=== PATIENT | female | born 1955 | race Caucasian/White ===

== ENCOUNTER 2020-06-07 15:33 | Outpatient (REF) | payer OTHER, SELFPAY ==
[2020-06-09 07:59] LABS: SARS COV2 IgG Negative (Negative)
== END 2020-06-07 15:34 | disposition home or self-care (01) ==
LOC: HO.LAB 15:33
PROVIDERS: PCP Internal Medicine; Visit Provider Internal Medicine
DX: Z01.84 Encounter for antibody response examination (principal); J44.9 Chronic obstructive pulmonary disease, unspecified
CPT/HCPCS: 36415; 86769

== ENCOUNTER 2020-09-25 06:39 | Outpatient (REF) | payer OTHER, SELFPAY ==
[2020-09-25 07:11] LABS: Hematocrit 34.5 % (37-47); Hemoglobin 11.3 g/dl (12.0-16.0); Mean Corpuscular HGB Conc 32.8 g/dl (31.0-35.0); Mean Corpuscular Hemoglobin 30.8 pg (27.0-33.0); Mean Platelet Volume 9.7 fL (9.4-12.3); Platelet Count 306 X10*3/uL (160-400); Red Blood Count 3.67 X10*6/uL (4.20-5.50); Red Cell Distribution Width 12.5 % (11.0-16.0); White Blood Count 5.5 X10*3/uL (4.8-10.8)
[2020-09-25 07:27] LABS: Alanine Aminotransferase 10 U/L (0-31); Albumin Level 4.1 g/dL (3.5-5.0); Alkaline Phosphatase 80 U/L (39-117); Anion Gap 10 (12-20); Aspartate Amino Transferase 17 U/L (5-31); Bilirubin Total 0.8 mg/dL (0.0-1.0); Blood Urea Nitrogen 12 mg/dL (9-16); Calcium 9.4 mg/dL (8.4-10.2); Carbon Dioxide 28 mmol/L (22-29); Chloride 105 mmol/L (96-108); Cholesterol 199 mg/dL; Estimated Glomerular Filt Rate > 60; Glucose Fasting 86 mg/dL (60-99); HDL Cholesterol 52 mg/dL; LDL Cholesterol Calculated 126 mg/dl; Potassium 4.1 mmol/L (3.3-5.1); Sodium 139 mmol/L (135-145); Triglycerides 109 mg/dL
[2020-09-25 07:48] LABS: TSH reflex Free T4 1.83 uIU/mL (0.32-4.0)
[2020-09-26 11:55] LABS: Lyme Abs Screen <0.90 index
== END 2020-09-25 06:40 | disposition home or self-care (01) ==
LOC: HO.LAB 06:39
PROVIDERS: PCP Internal Medicine; Visit Provider Physician Assistant
DX: Z13.29 Encounter for screening for other suspected endocrine disorder (principal); Z13.220 Encounter for screening for lipoid disorders; T14.8XXA Other injury of unspecified body region, initial encounter; W57.XXXA Bitten or stung by nonvenomous insect and other nonvenomous arthropods, initial encounter; I10 Essential (primary) hypertension
CPT/HCPCS: 36415; 80053; 80061; 84443; 85027; 86617; 86618

== ENCOUNTER 2020-10-18 08:33 | Outpatient (REF) | payer OTHER, SELFPAY ==
--- NOTE | ~2020-10-18 | MM_ITS ---
EXAMINATION: MM SCREENING DIGITAL BREAST TOMOSYNTHESIS, BILATERAL CLINICAL INFORMATION: Screening. Asymptomatic. The lifetime risk of breast cancer based on the Tyrer-Cuzick Model is 8%. COMPARISON: Mammography: October 13, 2019 and studies dating back to August 31, 2010 TECHNIQUE: Digital breast tomosynthesis is performed in both the craniocaudal and mediolateral oblique views along with computer-aided detection (CAD). Synthesized 2D images are generated from the tomosynthesis. FINDINGS: The breasts are heterogeneously dense, which may obscure small masses (ACR BI-RADS breast composition Category c). There are no significant masses, abnormal calcifications, or other abnormalities. MM/MM tomosynthesis screening BI IMPRESSION: There are no significant changes from prior study. ASSESSMENT: BI-RADS 1: Negative RECOMMENDATION: Routine annual mammography screening. This patient's information was entered into a reminder system with a target due date for their next mammogram.
== END 2020-10-18 08:34 | disposition home or self-care (01) ==
LOC: HO.MAMMO 08:33
PROVIDERS: PCP Internal Medicine; Visit Provider Internal Medicine
DX: Z12.31 Encounter for screening mammogram for malignant neoplasm of breast (principal)
CPT/HCPCS: 77063; 77067

== ENCOUNTER 2020-11-28 10:14 | Outpatient (REF) | payer OTHER, SELFPAY ==
--- NOTE | ~2020-11-28 | XR_ITS ---
EXAMINATION: XR HAND, LEFT CLINICAL INFORMATION: Contusion of hand. COMPARISON: None TECHNIQUE: PA, lateral, and oblique views of the left hand. FINDINGS: There is a small undisplaced fracture suspected along the proximal phalanx fourth digit with mild soft tissue swelling distally. The MCP, DIP and intercarpal joint space is maintained normal. There is mild dorsal soft tissue swelling adjacent to the MCP joints. There is mild osteopenia. XR/XR hand LT min 3V IMPRESSION: Mild osteopenia. Nondisplaced fracture suspected in proximal phalanx fourth digit with mild distal soft tissue swelling Visualized soft tissue swelling dorsal to the metacarpal joints on lateral view.
== END 2020-11-28 10:15 | disposition home or self-care (01) ==
LOC: HO.HMGCX 10:14
PROVIDERS: PCP Internal Medicine; Visit Provider Internal Medicine
DX: Z13.89 Encounter for screening for other disorder (principal)
CPT/HCPCS: 73130

== ENCOUNTER 2021-09-24 14:38 | Outpatient (REF) | payer MEDICARE, OTHER, SELFPAY ==
[2021-09-24 15:23] LABS: Appearance Urine CLEAR; Color Urine STRAW; Glucose Urine UA NEG (NEG); Leukocyte Esterase Urine 3+ (NEG); Nitrite Urine NEG (NEG); Specific Gravity - Urine <= 1.005 (1.005-1.025); UACC Culture Trigger YES; Urine Blood TRACE (NEG); Urine Ketones 5 MG/DL (NEG); Urine Protein NEG (NEG-TRACE)
[2021-09-24 15:40] LABS: Bacteria Urine 2+ /LPF; RBC Urine 0-2 /HPF (0); Squamous Epithelial Cell Urine TRACE /LPF; WBC Clumps Urine NOTED
== END 2021-09-24 14:39 | disposition home or self-care (01) ==
LOC: HO.LAB 14:38
PROVIDERS: PCP Internal Medicine; Visit Provider Internal Medicine
DX: R30.0 Dysuria (principal)
CPT/HCPCS: 81001; 87086; 87088; 87186

== ENCOUNTER 2021-10-17 07:09 | Outpatient (REF) | payer MEDICARE, OTHER, SELFPAY ==
[2021-10-17 07:53] LABS: Alanine Aminotransferase 11 U/L (0-31); Albumin Level 3.9 g/dL (3.5-5.0); Alkaline Phosphatase 73 U/L (39-117); Anion Gap 12 (12-20); Aspartate Amino Transferase 16 U/L (5-31); Bilirubin Total 0.6 mg/dL (0.0-1.0); Blood Urea Nitrogen 10 mg/dL (9-16); Calcium 8.9 mg/dL (8.4-10.2); Carbon Dioxide 26 mmol/L (22-29); Chloride 107 mmol/L (96-108); Cholesterol 232 mg/dL; Estimated Glomerular Filt Rate > 60; Glucose Fasting 86 mg/dL (60-99); HDL Cholesterol 61 mg/dL; LDL Cholesterol Calculated 159 mg/dl; Potassium 3.9 mmol/L (3.3-5.1); Sodium 141 mmol/L (135-145); Total Protein 6.9 g/dL (6.5-8.0); Triglycerides 60 mg/dL
[2021-10-18 13:26] LABS: Lyme Abs Screen <0.90 index
== END 2021-10-17 07:10 | disposition home or self-care (01) ==
LOC: HO.LAB 07:09
PROVIDERS: PCP Internal Medicine; Visit Provider Internal Medicine
DX: Z00.00 Encounter for general adult medical examination without abnormal findings (principal); T14.8XXA Other injury of unspecified body region, initial encounter; W57.XXXA Bitten or stung by nonvenomous insect and other nonvenomous arthropods, initial encounter
CPT/HCPCS: 36415; 80053; 80061; 86617; 86618

== ENCOUNTER 2021-10-23 07:44 | Outpatient (REF) | payer OTHER, MEDICARE, SELFPAY ==
--- NOTE | ~2021-10-23 | MM_ITS ---
EXAMINATION: MM SCREENING DIGITAL BREAST TOMOSYNTHESIS, BILATERAL CLINICAL INFORMATION: Screening. Asymptomatic. The lifetime risk of breast cancer based on the Tyrer-Cuzick Model is 7.0%. COMPARISON: Mammography: October 18, 2020 and studies dating back to June 20, 2014 TECHNIQUE: Digital breast tomosynthesis is performed in both the craniocaudal and mediolateral oblique views along with computer-aided detection (CAD). Synthesized 2D images are generated from the tomosynthesis. FINDINGS: The breasts are heterogeneously dense, which may obscure small masses (ACR BI-RADS breast composition Category c). There are no significant masses, abnormal calcifications, or other abnormalities. MM/MM tomosynthesis screening BI IMPRESSION: No mammographic evidence of malignancy. ASSESSMENT: BI-RADS 1: Negative RECOMMENDATION: Routine annual mammography screening. This patient's information was entered into a reminder system with a target due date for their next mammogram.
== END 2021-10-23 07:45 | disposition home or self-care (01) ==
LOC: HO.MAMMO 07:44
PROVIDERS: PCP Internal Medicine; Visit Provider Internal Medicine
DX: Z12.31 Encounter for screening mammogram for malignant neoplasm of breast (principal)
CPT/HCPCS: 77063; 77067

== ENCOUNTER → 2023-01-02 07:45 | Outpatient (BNV) | payer MEDICARE, OTHER, SELFPAY | PROVIDERS: PCP Internal Medicine; Visit Provider Radiology Diagnostic Radiology | DX: Z12.31 Encounter for screening mammogram for malignant neoplasm of breast (principal) | CPT/HCPCS: 77063; 77067 ==

== ENCOUNTER 2023-01-02 07:49 | Outpatient (REF) | payer MEDICARE, OTHER, SELFPAY | END 2023-01-02 07:50 | disposition home or self-care (01) | LOC: HO.MAMMO 07:49 | PROVIDERS: PCP Internal Medicine; Visit Provider Internal Medicine | DX: Z12.31 Encounter for screening mammogram for malignant neoplasm of breast (principal) | CPT/HCPCS: 77063; 77067 ==

== ENCOUNTER 2023-01-02 09:22 | Outpatient (AMB) | payer MEDICARE, OTHER, SELFPAY ==
[2023-01-02 09:23] VITALS: BP 114/70; PULSE 81; TEMP 36.4; O2SAT 98; BMI 21.6
--- NOTE | 2023-01-02 09:23 | A.OFFVIS_ITS ---
Intake Vital Signs 01/02/23 09:23 Height 5 ft 3 in Weight 122 lb BMI 21.6 BP 114/70 Blood Pressure Location Lt brachial Position Sitting Pulse 81 Pulse Source Pulse Oximeter Temp 97.5 F Temp Source Temporal Artery Scan Pulse Oximetry (%) 98 Oxygen Delivery Method Room Air Intake Visit Reasons: EST/ Left sided cheek swelling Intake Note: Pt presents to the office today for c/o left sided cheek swelling. Pt states she was working in the [employer] on friday and she walked into a branch and pt states she did pull out some wood from her cheek but it still has swelling and a lump. 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 Family History Mother Substance abuse Rheumatoid arthritis Essential hypertension Diabetes mellitus Father Mental problem Alzheimers disease Bladder cancer Social History Housing: House Alcohol intake: current Alcohol intake frequency: a few times a week Alcohol type: wine Patient Tobacco Use Status: Never used Tobacco e-Cigarette/Vaping Use: Never Used Second Hand Smoke Exposure: Yes service: No Current occupational status: employed and retired 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
== END 2023-01-02 10:07 | disposition home or self-care (01) ==
PROVIDERS: PCP Internal Medicine; Visit Provider Emergency Medicine
DX: L98.9 Disorder of the skin and subcutaneous tissue, unspecified (principal)
CPT/HCPCS: 99213

== ENCOUNTER 2023-02-11 09:48 | Outpatient (AMB) | payer MEDICARE, OTHER, SELFPAY ==
--- NOTE | 2023-02-11 09:49 | MHC.PC.OV ---
Vital Signs 02/11/23 09:50 Height 5 ft 3 in Weight 119 lb 0.8 oz BMI 21.1 BP 120/74 Blood Pressure Location Lt brachial Position Sitting Pulse 74 Pulse Source Pulse Oximeter Pulse Oximetry (%) 99 Oxygen Delivery Method Room Air Intake Visit Reasons: follow Up Urgent Care/ Face Injury From Branch Intake Note: pt was seen at urgent care for face injury due to a branch. pt states no relief with antibiotics Allergies merbromin [From MERCUROCHROME] Allergy (Intermediate, Verified 02/11/23 09:56) RASH/INFLAMMATION Mercurochrome Allergy (Unknown, Uncoded 02/11/23 09:56) swelling Medication List - Last Reconciled 02/11/23 by BG Velasco No Known Home Meds Tobacco use date assessed: 02/11/23 HPI follow Up Urgent Care/ Face Injury From Branch HPI Details Patient is a 67-year-old female who presents today for the same day visit to follow-up after urgent care visit 12/2022 due to left cheek injury from a branch. Patient of Dr. Carlos. Patient reports the 6 week ago she was working and ran face into branch, and then she removed small wood piece from her left cheek area, she did go to urgent care, patient reports that she applied Betadine to the area after this incident. Today, patient reports that she still can feel small lump on her left cheek, there are no signs of infection. Denies fever. 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 mandaen region Family History Mother Substance abuse Rheumatoid arthritis Essential hypertension Diabetes mellitus Father Mental problem Alzheimers disease Bladder cancer Social History Housing: House Alcohol intake: current Alcohol intake frequency: a few times a week Alcohol type: wine Patient Tobacco Use Status: Never used Tobacco e-Cigarette/Vaping Use: Never Used Second Hand Smoke Exposure: Yes service: No Current occupational status: employed and retired 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 How often do you have a drink containing alcohol?: 2-3 times a week 2. How many drinks containing alcohol do you have on a typical day when you are drinking?: 1 or 2 3. How often do you have six or more drinks on one occasion?: Never Total Score: 3 Score Reviewed/Action Taken: Yes DUNIA-7 AMB Questionnaire DUNIA-7 Date DUNIA - 7 assessed: 09/17/21 Source: Developed by Drs. Melvin Bose, Rain Johansen, Usama Maher and colleagues, with an educational chava from [employer]. Review of Systems Const Denies body aches, Denies chills, Denies fever(s) and Denies headache(s) ENT Denies dizziness, Denies otalgia, Denies headache(s), Denies nasal discharge, Denies sinus pain and Denies sore throat Card Denies chest pain, Denies edema, Denies lightheadedness and Denies dyspnea Resp Denies cough, Denies dyspnea and Denies wheezing GI Denies abdominal pain Musc Denies myalgias Skin/Breast Reports as per HPI Neuro Denies dizziness and Denies headache(s) Aller/Immun Denies wheezing Physical exam (Primary Care) Vital Signs: Last Vital Signs Pulse 74 02/11/23 09:50 BP 120/74 02/11/23 09:50 Pulse Ox 99 02/11/23 09:50 Oxygen Delivery Method Room Air 02/11/23 09:50 BMI result Body Mass Index 21.1 Tobacco/Smoking Status: Tobacco use Status Tobacco use date assessed 02/11/23 02/11/23 09:54 Patient Tobacco Use Status Never used Tobacco 02/11/23 09:54 e-Cigarette/Vaping Use Never Used 02/11/23 09:54 Thrive Assessment: Date of Thrive Assessment Date Thrive assessed 09/17/21 02/11/23 09:54 Const General: cooperative and no acute distress Orientation/consciousness: patient oriented x3 HENMT Head: Yes normocephalic and Yes atraumatic Face and sinus: Yes sinuses nontender Mouth: oropharynx normal and moist mucous membranes Throat: Yes posterior oropharynx normal Eyes General: appearance normal, both eyes and all related structures Neck Neck: Yes normal visual inspection, Yes full ROM and Yes no lymphadenopathy Resp Effort & Inspection: normal respiratory effort and able to speak in complete sentences Auscultation: clear to auscultation bilaterally, no crackles, no rales, no rhonchi and no wheezes Cardio Rate: regular rate Rhythm: regular rhythm Heart sounds: S1 normal heart sound present and S2 normal heart sound present GI Auscultation: normal bowel sounds Skin Full body images: 1. Left cheek about 5 mm hard area to touch, pt reports mild tenderness, skin with small scar tissue, no signs of infection noted, no discharge, no warmth, no erythema Neuro General: patient oriented x3 Gait exam (Neuro): Normal gait present Extrem General: Yes full ROM Assessment and Plan Assessment & Plan (1) Lump of skin: Code(s): R22.9 - Localized swelling, mass and lump, unspecified Plan: Left cheek about 5 mm hard area to touch, pt reports mild tenderness, skin with small scar tissue, no signs of infection noted, no discharge, no warmth, no erythema ? Scar tissue Encouraged patient to perform warm compresses t.i.d. for 1 week notify office if no improvement in 1 week, will consider referral to Dermatology for an evaluation. Patient agreed with the plan Coding Level of Care Code Est Pt Level 3 (45289) Diagnoses Lump of skin R22.9
[2023-02-11 09:50] VITALS: BP 120/74; PULSE 74; O2SAT 99; BMI 21.1
== END 2023-02-11 10:05 | disposition home or self-care (01) ==
PROVIDERS: PCP Internal Medicine; Visit Provider Nurse Practitioner Family
DX: R22.9 Localized swelling, mass and lump, unspecified (principal)
CPT/HCPCS: 99213

== ENCOUNTER 2024-01-08 08:00 | Outpatient (REF) | payer MEDICARE, OTHER, SELFPAY ==
--- NOTE | ~2024-01-08 | MM_ITS ---
EXAMINATION: MM SCREENING DIGITAL BREAST TOMOSYNTHESIS, BILATERAL CLINICAL INFORMATION: Screening. Asymptomatic. COMPARISON: Mammography: Comparison is made with available priors TECHNIQUE: Digital breast mammography with tomosynthesis is performed in both the craniocaudal and mediolateral oblique views along with computer-aided detection (CAD). FINDINGS: The breasts are heterogeneously dense, which may obscure small masses (ACR BI-RADS breast composition Category c). There are no significant masses, abnormal calcifications, or other abnormalities. MM/MM tomosynthesis screening BI IMPRESSION: No mammographic evidence of malignancy. ASSESSMENT: BI-RADS BI-RADS 1 - Negative RECOMMENDATION: Routine annual mammography screening. 1 year F/U This examination should not preclude the clinical evaluation of a suspicious palpable abnormality. This patient's information was entered into a reminder system with a target due date for their next mammogram. Electronically signed by: Zulema Haywood DO 01/16/2024 10:02 AM JOSE
== END 2024-01-08 08:01 | disposition home or self-care (01) ==
LOC: HO.MAMMO 08:00
PROVIDERS: PCP Internal Medicine; Visit Provider Internal Medicine
DX: Z12.31 Encounter for screening mammogram for malignant neoplasm of breast (principal)
CPT/HCPCS: 77063; 77067

== ENCOUNTER → 2024-01-08 08:00 | Outpatient (BNV) | payer MEDICARE, OTHER, SELFPAY | PROVIDERS: PCP Internal Medicine; Visit Provider Internal Medicine | DX: Z12.31 Encounter for screening mammogram for malignant neoplasm of breast (principal) | CPT/HCPCS: 77063; 77067 ==

== ENCOUNTER 2024-05-07 11:01 | Outpatient (AMB) | payer MEDICARE, OTHER, SELFPAY ==
--- NOTE | 2024-05-07 11:25 | MHC.OFFWIV ---
Intake Vital Signs 05/07/24 11:26 Height 5 ft 3 in Weight 122 lb 8 oz BMI 21.7 BP 116/72 Blood Pressure Location Lt brachial Position Sitting Pulse 74 Pulse Source Pulse Oximeter Temp 97.4 F Temp Source Oral Pulse Oximetry (%) 100 Oxygen Delivery Method Room Air Intake Visit Reasons: EP-chest/sinus wily/cough [phone] Intake Note: Patient here for sinus congestion, cough and chest congestion that has been present for over 3 weeks. Patient Tobacco Use Status: Never used Tobacco Allergies merbromin [From MERCUROCHROME] Allergy (Intermediate, Verified 02/11/23 09:56) RASH/INFLAMMATION Mercurochrome Allergy (Unknown, Uncoded 02/11/23 09:56) swelling Do you need a note to return to daycare/school/sports/work: No HPI HPI Comments History of Present Illness Details History - The patient is a 69-year-old female presenting with prolonged cold symptoms including chest congestion, sinus congestion, and a persistent cough persisting over three weeks. - Reports include a sensation of chest heaviness without associated dyspnea or wheezing. - The patient described copious production of thick green sputum, particularly prominent in the morning. - No tobacco use or respiratory conditions like COPD or asthma were reported. - Current medications and interventions include guaifenesin for chest congestion, antihistamines and decongestants (Benadryl Allergy) for night, and pseudoephedrine for daytime nasal congestion, leading to partial symptomatic management. - The patient only reports mild fatigue and denies fevers, ear pain, or headaches. - Following consultation with her primary physician, today's urgent care visit was advised. Physical Exam General: Cooperative, healthy appearing, comfortable and no acute distress Orientation/consciousness: Patient oriented x3 Limitations: No limitations Head: Normal to inspection Ears: Hearing grossly normal bilaterally, external ears normal and TM's normal bilaterally Nose: Normal external nose present, Normal nares present and No nasal discharge present Face and sinus: Normal facial exam and Yes sinuses nontender Mouth: Normal oral and palatal mucosa present and moist mucous membranes Throat: Yes tonsils normal, Yes uvula midline. Posterior oropharynx erythema Eyes: Appearance normal, both eyes and all related structures Neck: Normal visual inspection Respiratory: Clear to auscultation bilaterally. Normal respiratory effort, able to speak in complete sentences, no respiratory distress, not tachypneic, no tripod positioning and no use of accessory muscles Cardiovascular: Regular rate and rhythm. Normal S1 and S2 Skin: No rashes or lesions noted Neuro: Patient oriented x3 Extremities: Normal to inspection and Yes no clubbing, cyanosis or edema PFSH Surgical History History of surgical removal of squamous cell carcinoma of skin of sabianist region Family History Mother Substance abuse Rheumatoid arthritis Essential hypertension Diabetes mellitus Father Mental problem Alzheimers disease Bladder cancer Social History Housing: House Alcohol intake: current Alcohol intake frequency: a few times a week Alcohol type: wine Patient Tobacco Use Status: Never used Tobacco e-Cigarette/Vaping Use: Never Used Second Hand Smoke Exposure: Yes service: No Current occupational status: employed and retired 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 [employer]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 Cognitive needs: No Hearing needs: No Vision needs: No Review of Systems Const All systems reviewed & are unremarkable except as noted in HPI and below Physical Exam Vital Signs: Last Vital Signs Temp 97.4 F 05/07/24 11:26 Pulse 74 05/07/24 11:26 BP 116/72 05/07/24 11:26 Pulse Ox 93 05/07/24 11:26 Oxygen Delivery Method Room Air 05/07/24 11:26 BMI result Body Mass Index 21.7 Assessment & Plan Assessment & Plan (1) Upper respiratory tract infection: Code(s): J06.9 - Acute upper respiratory infection, unspecified Qualifiers: URI type: unspecified URI Qualified Code(s): J06.9 - Acute upper respiratory infection, unspecified Plan: VSS, pt well appearing and PE unremarkable. The management plan addressed symptoms consistent with atypical pneumonia unresponsive to symptomatic treatment over three weeks, leading to the prescription of azithromycin as a Z-Asher. The antibiotic course targets suspected bacterial etiology efficiently, given its known efficacy for such conditions. The patient is advised to maintain the use of guaifenesin, facilitating mucolytic activity, and increasing fluid intake to improve mucus clearance. The procedure for medication administration was explained, along with potential reactions and symptom targets for monitoring. The plan reflects a dual approach of antibiotic therapy with supportive symptomatic care, addressing the singular significant issue outlined by the patient. Patient was informed and verbally consented to the use of an ambient scribe for clinic note documentation during this visit Medications: New azithromycin For 250 mg dose pack: take 500 mg today (day 1), then 250 mg for 4 days (days 2-5) PO 6 tabs 0RF Coding Level of Care Code Est Pt Level 3 (62460) Diagnoses Upper respiratory tract infection, unspecified type J06.9 URI type: unspecified URI
[2024-05-07 11:26] VITALS: BP 116/72; PULSE 74; TEMP 36.3; O2SAT 100; BMI 21.7
== END 2024-05-07 11:49 | disposition home or self-care (01) ==
PROVIDERS: PCP Internal Medicine; Visit Provider Physician Assistant
DX: J06.9 Acute upper respiratory infection, unspecified (principal)

== ENCOUNTER → 2024-05-07 11:01 | Outpatient (BNVA) | payer MEDICARE, OTHER, SELFPAY | PROVIDERS: PCP Internal Medicine | DX: J06.9 Acute upper respiratory infection, unspecified (principal) | CPT/HCPCS: 99212 ==

== ENCOUNTER 2024-10-04 09:10 | Outpatient (REF) | payer MEDICARE, OTHER, SELFPAY ==
[2024-10-04 14:06] LABS: Appearance Urine Cloudy; Glucose Urine UA Negative (Negative); PH 7.0 (5.0-9.0); Specific Gravity - Urine <= 1.005 (1.005-1.025); UMIC TRIGGER UACC YES
[2024-10-04 14:17] LABS: UACC Culture Trigger YES
== END 2024-10-04 09:11 | disposition home or self-care (01) ==
LOC: HO.LAB 09:10
PROVIDERS: PCP Internal Medicine; Visit Provider Nurse Practitioner Family
DX: N30.91 Cystitis, unspecified with hematuria (principal); Z13.9 Encounter for screening, unspecified; R30.0 Dysuria
CPT/HCPCS: 81001; 81003; 87086; 99212

== ENCOUNTER 2024-10-04 09:10 | Outpatient (AMB) | payer MEDICARE, OTHER, SELFPAY ==
--- OUTSIDE RECORDS SUMMARY | 2024-10-04 09:51 | XMS_ITS | Patient Health Record ---
Author Organization [facility] Address [address] [place] [address] Care Team Providers Care Construction Analyst Name Role Phone Melvin Pizarro [phone] Reason For Referral No Information Plan Of Treatment No Information
[2024-10-04 10:01] VITALS: BP 108/64; PULSE 61; TEMP 36.4; O2SAT 100; BMI 21.8
--- NOTE | 2024-10-04 10:01 | MHC.OFFWIV ---
Intake Vital Signs 10/04/24 10:01 Height 5 ft 3 in Weight 123 lb 2 oz BMI 21.8 BP 108/64 Blood Pressure Location Rt brachial Position Sitting Pulse 61 Pulse Source Pulse Oximeter Temp 97.5 F Temp Source Oral Pulse Oximetry (%) 100 Oxygen Delivery Method Room Air Intake Visit Reasons: EP UTI symptoms Intake Note: presents with discomfort/pressure when voiding, blood in urine, urine urgency, Patient Tobacco Use Status: Never used Tobacco Allergies merbromin (From MERCUROCHROME) Allergy (Intermediate, Verified 10/04/24 10:09) RASH/INFLAMMATION Mercurochrome Allergy (Unknown, Uncoded 02/11/23 09:56) swelling Do you need a note to return to daycare/school/sports/work: No HPI HPI Comments History of Present Illness Details 69 y/o Female patient who presents to the walk in clinic with c/o Urinary symptoms that started 4 days ago. Reports Urinary frequency, urgency and Dsyuria. She has also noticed Blood in her Urine. Denies fevers, chills, nausea or vomiting. [facility] Medical History (Updated 10/04/24 @ 10:24 by Ana Sales NP) Cystitis Surgical History History of surgical removal of squamous cell carcinoma of skin of lutheran region Family History Mother Substance abuse Rheumatoid arthritis Essential hypertension Diabetes mellitus Father Mental problem Alzheimers disease Bladder cancer Social History Housing: House Alcohol intake: current Alcohol intake frequency: a few times a week Alcohol type: wine Patient Tobacco Use Status: Never used Tobacco e-Cigarette/Vaping Use: Never Used Second Hand Smoke Exposure: Yes service: No Current occupational status: employed and retired 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 Cognitive needs: No Hearing needs: No Vision needs: No Review of Systems Const All systems reviewed & are unremarkable except as noted in HPI and below Physical Exam Vital Signs: Last Vital Signs Temp 97.5 F 10/04/24 10:01 Pulse 61 10/04/24 10:01 BP 108/64 10/04/24 10:01 Pulse Ox 100 10/04/24 10:01 Oxygen Delivery Method Room Air 10/04/24 10:01 BMI result Body Mass Index 21.8 Const General: no acute distress Orientation/consciousness: patient oriented x3 GI Palpation (GI): Soft to palpation and Tenderness to palpation present (GI) suprapubicly Auscultation: normal bowel sounds General: Yes bladder normal to palpation and Yes no CVA tenderness Bimanual exam- vagina & uterus: bladder normal to palpation Back/Spine/Pelvis Back: no CVA tenderness Neuro General: patient oriented x3 Results AMB Urinalysis, Automated UA Leukoctes 500 Isaac/uL Last Edit by Blanche Tomas MA on 10/04/24 10:22 UA Nitrite Negative Last Edit by Blanche Tomas MA on 10/04/24 10:22 UA Urobilinogen 0.2 mg/dL Last Edit by Blanche Tomas MA on 10/04/24 10:22 UA Protein 0 mg/dL Last Edit by Blanche Tomas MA on 10/04/24 10:22 UA pH 6.0 Last Edit by Blanche Tomas MA on 10/04/24 10:22 UA Blood 200 Solomon/uL Last Edit by Blanche Tomas MA on 10/04/24 10:22 UA Specific Dime Box 1.005 Last Edit by Blanche Tomas MA on 10/04/24 10:22 UA Ketone Negative Last Edit by Blanche Tomas MA on 10/04/24 10:22 UA Bilirubin 0 mg/dL Last Edit by Blanche Tomas MA on 10/04/24 10:22 UA Glucose 0 mg/dL Last Edit by Blanche Tomas MA on 10/04/24 10:22 Results Reviewed Results Reviewed: Laboratory Last Values Urine pH (Auto) 6.0 10/04/24 10:09 Specific Dime Box (Auto) 1.005 10/04/24 10:09 Urine Protein (Auto) 0 mg/dL 10/04/24 10:09 Glucose (UA)(Auto) 0 mg/dL 10/04/24 10:09 Urine Ketones (Auto) Negative 10/04/24 10:09 Urine Blood (Auto) 200 Solomon/uL 10/04/24 10:09 Urine Nitrite (Auto) Negative 10/04/24 10:09 Urine Bilirubin (Auto) 0 mg/dL 10/04/24 10:09 Urine Urobilinogen (Auto) 0.2 mg/dL 10/04/24 10:09 Leukocyte Esterase (Auto) 500 Isaac/uL 10/04/24 10:09 Assessment & Plan Assessment & Plan (1) Cystitis: Code(s): N30.90 - Cystitis, unspecified without hematuria Plan: Urinalysis positive for ISAAC and Blood Will send urine for C&S Ordered Levofloxacin for 5 days. Hydrate with plenty of water. Orders: Orders AMB Urinalysis Automated Today Z13.9 - Encounter for screening, unspecified UA CC w/rflx Micro + Cult Today N30.90 - Cystitis, unspecified without hematuria Medications: New levofloxacin 250 mg PO DAILY 5 tabs 0RF 5 days N30.90 - Cystitis, unspecified without hematuria Coding Level of Care Code Est Pt Level 4 (95322) Diagnoses Cystitis N30.90 Time Spent (min) 20
== END 2024-10-04 10:42 | disposition home or self-care (01) ==
PROVIDERS: PCP Internal Medicine; Visit Provider Nurse Practitioner Family
DX: N30.90 Cystitis, unspecified without hematuria (principal); Z13.9 Encounter for screening, unspecified

== ENCOUNTER 2025-01-06 10:47 | Outpatient (REF) | payer MEDICARE, OTHER, SELFPAY ==
[2025-01-06 12:33] LABS: Appearance Urine Turbid; Glucose Urine UA Negative (Negative); PH 7.5 (5.0-9.0); Specific Gravity - Urine 1.020 (1.005-1.025); UMIC TRIGGER UACC YES
[2025-01-06 12:54] LABS: UACC Culture Trigger YES
--- OUTSIDE RECORDS SUMMARY | 2025-01-06 13:28 | XMS_ITS | Patient Health Record ---
Author Organization [facility] Address [address] [place] [address] Care Team Providers Care Automotive Parts Coordinator Name Role Phone Melvin Pizarro [phone] Reason For Referral No Information Plan Of Treatment No Information
== END 2025-01-06 10:48 | disposition home or self-care (01) ==
LOC: HO.LAB 10:47
PROVIDERS: PCP Internal Medicine; Visit Provider Internal Medicine
DX: R39.9 Unspecified symptoms and signs involving the genitourinary system (principal)
CPT/HCPCS: 81001; 87086; 87088; 87186

== ENCOUNTER 2025-02-16 09:35 | Outpatient (REF) | payer MEDICARE, OTHER, SELFPAY ==
[2025-02-16 22:38] LABS: Bacterial Vaginosis PCR NEGATIVE (Negative); Candida Group PCR NOT DETECTED (Not Detect); Candida glab krusei PCR NOT DETECTED (Not Detect); Trichomonas vaginalis PCR NOT DETECTED (Not Detect)
== END 2025-02-16 09:36 | disposition home or self-care (01) ==
LOC: HO.LNP 09:35
PROVIDERS: PCP Internal Medicine; Visit Provider Advanced Practice Midwife
DX: N76.0 Acute vaginitis (principal)
CPT/HCPCS: 81515; 99202

== ENCOUNTER 2025-02-16 09:35 | Outpatient (AMB) | payer MEDICARE, OTHER, SELFPAY ==
--- NOTE | 2025-02-16 09:39 | MHC.OFFVIS ---
Vital Signs 02/16/25 09:42 Height 5 ft 3 in Weight 120 lb BMI 21.3 BP 104/72 Intake Visit Reasons: BV test Icer Machine Required: No Corporate Officer: Corporate Officer offered & declined Accompanied by: Self / Same As Patient Allergies merbromin (From [facility]) Allergy (Intermediate, Verified 02/16/25 09:42) RASH/INFLAMMATION Mercurochrome Allergy (Unknown, Uncoded 02/11/23 09:56) swelling Is last menstrual period known: No Post menopausal: Yes Patient : No HPI Comments Details: Patient presents as a new patient referred by her PCP. She has reports of vaginal discharge and irritation. She reports originally she had an odor but this has since subsided and much faint at ths time. She has been treated for a UTI approximately 2 weeks ago. When she saw her PCP she was treated for a vaginal yeast infection and suspected bacterial vaginosis. She admits she did complete the fluconazole. But did not take the metronidazole because she wasn't sure if she had BV She is feeling some relief and decreased vulvar irritation. 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 and reports not intimate recently due to vag odor. 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 Family History Mother Substance abuse Rheumatoid arthritis Essential hypertension Diabetes mellitus Father Mental problem Alzheimers disease Bladder cancer Social History Housing: House Alcohol intake: current Alcohol intake frequency: a few times a week Alcohol type: wine Patient Tobacco Use Status: Never used Tobacco e-Cigarette/Vaping Use: Never Used Second Hand Smoke Exposure: Yes service: No Current occupational status: employed and retired 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 Cognitive needs: No Hearing needs: No Vision needs: No Female Reproductive History Menstrual Menopause type: natural Total pregnancies: 0 History of abnormal pap smear: No Review of Systems ENT Reports no additional complaints Card Reports no additional complaints Resp Reports no additional complaints GI Reports no additional complaints Reports as per HPI Physical Exam Vital Signs: Last Vital Signs BP 104/72 02/16/25 09:42 BMI result Body Mass Index 21.3 Const General: cooperative and healthy appearing Orientation/consciousness: patient oriented x3 HEENT Head: Yes normocephalic Resp Effort & Inspection: normal respiratory effort and able to speak in complete sentences External Female Exam: normal external appearance and normal appearance of the urethra Speculum Exam - Vagina: vagina atrophic and other (scant white vag discharge) Speculum Exam - Cervix: normal appearance of the cervix Bimanual exam- vagina & uterus: other (Bimanual deferred, not indicated at this time) Skin General skin exam: no rashes or lesions noted Neuro General: patient oriented x3 Psych Affect: normal affect Assessment & Plan Assessment & Plan (1) Acute vaginitis: Code(s): N76.0 - Acute vaginitis Plan Discussed with patient that yeast and bacterial vaginosis infections are an overgrowth of normal vaginal renny. In the vagina yeast, bacteria and lactobacilli are balanced each other out. If lactobacillus is decreased, it can lead to yeast or other bacterial overgrowth and that is when the patient becomes symptomatic ( odor, itching, discharge). [place] to use skin barrier as needed ie Vaseline/Aquaphor consider use of topical estrogen at later date Things to avoid include: douching or bubble baths perfumed soaps an area Discussed vaginal hygiene, loose cotton undergarments, avoidance of deodorants and sprays colored or scented harsh soaps. Healthy diet/nutrition: limit refined sugar, such as white sugars, breads/pasta/rice and Would encourage to try whole grains, increase water intake and limited sweetened drinks. Patient can also start an [id number] probiotic which can help replenish her lactobacillus. Examples include AZOs, Acidophilous, Yogurt with active lactobacilli, RepHesh, Replens and ReBalanced by Liz to promote vaginal health pt is overdue for ANUUAL and will luis next available in the next month she is up to date with Mammo If results + BV, , pt will be notified and be able to begin her previous prescripton from her PCP Orders: Orders Bacterial Vaginosis Panel Today N76.0 - Acute vaginitis Coding Level of Care Code New Pt Level 3 (86704) Diagnoses Acute vaginitis N76.0
[2025-02-16 09:42] VITALS: BP 104/72; BMI 21.3
== END 2025-02-16 10:03 | disposition home or self-care (01) ==
LOC: HO.HWSM 09:35
PROVIDERS: PCP Internal Medicine; Visit Provider Advanced Practice Midwife
DX: N76.0 Acute vaginitis (principal)
CPT/HCPCS: 99203